=== PATIENT | female | born 1955 | race Caucasian/White ===

== ENCOUNTER 2023-02-09 | Emergency (ER) | payer MEDICARE, OTHER, SELFPAY ==
[2023-02-09 00:02] VITALS: BP 181/123; PULSE 102; RESP 17; TEMP 36.4; O2SAT 98; BMI 32.4
[2023-02-09 00:12] VITALS: BP 155/80; PULSE 98; RESP 20; TEMP 36.4; O2SAT 97
[2023-02-09 01:26] VITALS: BP 181/123; PULSE 102; RESP 19; TEMP 36.4; O2SAT 98
--- NOTE | 2023-02-09 01:26 | RAD_ITS ---
INDICATION: cough EXAMINATION: Frontal and lateral views of the chest. COMPARISON: None. FINDINGS: Frontal and lateral views of the chest were obtained. The cardiac silhouette is not enlarged. Atelectasis in the lower lobes bilaterally. No pleural effusion or pneumothorax. RAD/Chest PA and Lateral IMPRESSION: Atelectasis in the lower lobes bilaterally. Superimposed mild infection is difficult to exclude. Electronically Signed: Jona Shine MD at 1:57 EDT ,
--- NOTE | 2023-02-09 01:26 | EKG12_ITS ---
Test Reason : DYSRHYTHMIA Blood Pressure : / mmHG Vent. Rate : 085 BPM Atrial Rate : 085 BPM P-R Int : 134 ms QRS Dur : 098 ms QT Int : 366 ms P-R-T Axes : 063 -14 029 degrees QTc Int : 435 ms Sinus rhythm with occasional Premature ventricular complexes Otherwise normal ECG Confirmed by LETICIA HAWKINS, MALLORY ([id number]), state editor ERWIN WOLFE ([id number]) on 02/09/2023 10:27:48 AM Referred By: DEVANTE Confirmed By:MALLORY KELLY MD
[2023-02-09 01:35] VITALS: PULSE 87; RESP 16
[2023-02-09] MEDS: Ipratropium/Albuterol Sulfate 3 ML AMPUL.NEB INHALATION (01:35)
[2023-02-09] MEDS: predniSONE 20 MG Tablet 40 MG PO (01:38)
[2023-02-09] MEDS: guaiFENesin/Codeine 5 ML UDC 10 ML PO (01:38)
--- NOTE | 2023-02-09 02:06 | EDS_ITS ---
HPI History of Present Illness Chief Complaint: Cough Informant: patient Narrative Narrative: Patient is a 67-year-old female who reports no significant past medical history. She states for approximately 10 to 12 days she has had nasal congestion sore throat cough and eye redness. She denies any known sick contacts. She states there is no history of lung disorder or smoking or vaping history. She states she has had pneumonia in the past and has concern for this once again and therefore comes in for evaluation. PFSH PFSH Medical History no medical history Home Medications azelastine 137 mcg (0.1 %) nasal spray aerosol 2 spray intranasal BID #30 mL 02/09/23 [Rx Last Taken Unknown] azithromycin 250 mg tablet (Zithromax Z-Omid) See Rx Instructions PO .COMPLEX #6 tabs 02/09/23 [Rx Last Taken Unknown] hydrocodone-homatropine 5 mg-1.5 mg/5 mL (5 mL) oral syrup (Hycodan) 5 ml PO 4X/DAY PRN PRN cough 7 days #140 mL 02/09/23 [Rx Last Taken Unknown] qncndjvm-dufnyktrc-jnhjdwxq 3.5 mg/mL-10,000 unit/mL-0.1% eye drops (Maxitrol) 2 drp EACH EYE 4X/DAY 7 days #5 mL 02/09/23 [Rx Last Taken Unknown] prednisone 20 mg tablet 40 mg (2 x 20 mg) PO DAILY 5 days #10 tabs 02/09/23 [Rx Last Taken Unknown] Allergy/AdvReac Type Severity Reaction Status Date / Time No Known Allergies Allergy Verified 02/09/23 00:03 Social History Smoking Status: Never smoker [facility] ED Constitutional Constitutional ED: Denies chills or fever(s) Eyes Eyes: Reports other Details: Positive eye redness and discharge ENT ENT ED: Reports rhinorrhea and sore throat Cardiovascular Cardiovascular: Denies chest pain Respiratory/Chest Respiratory/Chest: Reports cough; Denies dyspnea Gastrointestinal Gastrointestinal: Reports nausea; Denies abdominal pain, diarrhea or vomiting Genitourinary Genitourinary ED: Denies dysuria Musculoskeletal Musculoskeletal: Reports myalgias Integumentary Denies rash Neurologic Neurologic: Reports headache(s) Hematologic/Lymphatic Hematologic/Lymphatic: Denies easy bleeding or easy bruising EXAM Physical Exam Const Vital Signs: 02/09/23 00:02 02/09/23 00:12 02/09/23 00:14 Temperature 97.5 F L 97.5 F L Temperature Source Temporal Temporal Pulse Rate 102 H 98 Respiratory Rate 17 20 H Respiratory Effort Normal Non-Labored Respiratory Depth Normal Respiratory Pattern Normal Blood Pressure 181/123 H 155/80 H Blood Pressure Mean 142 105 Pulse Ox 98 97 Oxygen Delivery Method Room Air Room Air 02/09/23 01:26 02/09/23 01:35 02/09/23 02:22 Temperature 97.5 F L 97.8 F Temperature Source Temporal Temporal Pulse Rate 102 H 87 96 Respiratory Rate 19 H 16 19 H Respiratory Effort Respiratory Depth Respiratory Pattern Normal Blood Pressure 181/123 H 145/81 H Blood Pressure Mean 142 102 Pulse Ox 98 99 Oxygen Delivery Method Positive well nourished and well developed General Appearance ED: well developed HEENT HEENT Narrative: Nasal mucosa is hyperemic and boggy with enlarged inferior nasal turbinates Bilateral TMs are retracted but show no secondary changes to suggest infection Posterior pharynx displays cobblestoning consistent with sinus drainage without airway edema or compromise or secondary changes to suggest infection Eyes PERRL and EOMs intact bilaterally Neck supple and no JVD Neck Narrative: Positive anterior cervical and adenopathy noted Resp normal respiratory effort and clear to auscultation bilaterally Cardio regular rate and regular rhythm Extremity normal to inspection Neuro oriented x3 and CN's II-XII intact bilaterally Sensorium / Orientation: alert Psych mental status grossly normal Skin no rashes or lesions noted MDM MDM MDM Narrative Medical decision making narrative: Patient presented to the ER afebrile and in no acute respiratory distress. Constellation of symptoms is most consistent with a viral infection but as patient also has differential diagnosis of potential pneumonia a chest x-ray was obtained. X-ray revealed atelectasis without acute infiltrate. As she reported some chest tightness associated with this and EKG was also obtained which revealed normal sinus rhythm without ischemic changes. Patient was given steroids cough syrup and a breathing treatment in the ER reported feeling better and vitals remained stable afterwards. Therefore at this time as history and exam indicate this is more viral in nature and she is not in respiratory distress or requiring supplemental oxygen there is no need for further work-up and she is otherwise safe for discharge History & Record Review Discussion w/independent historian: Patient Radiography Diagnostic Testing: Clinical Impression(s) from Imaging Studies Chest X-Ray 02/09/23 01:26 IMPRESSION: Atelectasis in the lower lobes bilaterally. Superimposed mild infection is difficult to exclude. Electronically Signed: Jona Shine MD at 1:57 EDT , Chest x-ray as interpreted by the emergency medicine physician reveals atelec tasis without acute infiltrate pneumothorax or pleural effusion Discharge Plan Triage Chief Complaint: Cough ED Provider: Dima Brown Dx/Rx/DC Orders Clinical Impression: Acute upper respiratory infection, Conjunctivitis Instructions: ED Conjunctivitis, Nonspecific, ED URI, Viral W/ Wheezing (Adult) Prescriptions: New prednisone 20 mg tablet 40 mg PO DAILY 5 Days Qty: 10 0RF azelastine 137 mcg (0.1 %) aerosol,spray 2 spray intranasal BID Qty: 30 0RF Rx Instructions: administer into each nostril neomycin-polymyxin B-dexameth [Maxitrol] 3.5mg/mL-10,000 unit/mL-0.1 % drops,suspension 2 drp EACH EYE 4X/DAY 7 Days Qty: 5 0RF azithromycin [Zithromax Z-Omid] 250 mg tablet See Rx Instructions .ROUTE .COMPLEX Qty: 6 0RF Rx Instructions: For 250 mg dose pack: take 500 mg today (day 1), then 250 mg for 4 days (days 2-5) hydrocodone-homatropine [Hycodan] 5-1.5 mg/5 mL (5 mL) syrup 5 ml PO 4X/DAY PRN PRN (Reason: cough) 7 Days Qty: 140 0RF Primary Care Provider: MAN GOMEZ Disposition Disposition: Home, Self Care Discharge Date/Time: 02/09/23 02:23
[2023-02-09 02:22] VITALS: BP 145/81; PULSE 96; RESP 19; TEMP 36.6; O2SAT 99
== END 2023-02-09 02:23 | disposition home or self-care (01) ==
PROVIDERS: Emergency Provider Emergency Medicine; Visit Provider Emergency Medicine
DX: J06.9 Acute upper respiratory infection, unspecified (principal); H10.9 Unspecified conjunctivitis
CPT/HCPCS: 71046; 93005; 94640; 99283